=== PATIENT | male | born 1940 | race Caucasian/White ===

== ENCOUNTER 2017-05-30 07:15 | Emergency (ER) | payer BC, MEDICARE, OTHER ==
[~2017-05-30] VITALS: Ht 170.2 cm; Wt 85.0 kg
[~2017-05-30 07:15] MED LIST: ALLO100T PO; AMLO2.5T PO; ASPI81TA82 PO; DOXY100T PO; ENAL20TA81 PO; EZET10 PO; NITR.4 SL; SYNT88TA PO; VENTAER INH
[2017-05-30 07:20] VITALS: BP 140/81; PULSE 95; RESP 16; TEMP 98.5; O2SAT 95
[2017-05-30] MEDS ORDERED: LEVO.1 PO (07:30)
[2017-05-30] MEDS ORDERED: VASO10TA8 PO (07:30)
[2017-05-30] MEDS ORDERED: AMLO2.5T PO (07:30)
[2017-05-30] MEDS ORDERED: ZOCO20TA PO (07:30)
[2017-05-30] MEDS ORDERED: ALLO100T PO (07:30)
--- NOTE | 2017-05-30 07:31 | PD ---
HPI . 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 He is here today stating that he needs to have his work flushed monthly does not have a local physician or clinic who can do this for him. He denies any complaints at all. PFSH Past Medical History Hx Anticoagulant Therapy: Yes (81 MG ASA) Heart Rhythm Problems: No Cancer: No Cardiac Catheterization: Yes (3 stents) Cardiovascular Problems: Yes (STENTS) High Cholesterol: Yes Chemotherapy: Yes (2014) Congestive Heart Failure: No Coronary Artery Disease: Yes Diabetes: No Hepatitis: No Hiatal Hernia: No Hypertension: Yes Respiratory: No Thyroid Disease: No ?: Not Past Surgical History Abdominal Surgery: Yes (appendectomy) Cardiac Surgery: Yes (xcardiac stents) Coronary Artery Bypass Graft: No Coronary Stent: Yes (X2) Endocrine Surgery: Yes (thyroidectomy) Oral Surgery: Yes (tonsillectomy) Other Surgery: Yes Social History Alcohol Use: Yes (1-2 monthly) Tobacco Use: No Substance Use: No Allergies-Medications (Allergen,Severity, Reaction): Coded Allergies: diatrizoate meglumine (Unverified Allergy, Severe, Cardiac Arrest, 05/30/17 ) gadobenic acid (Unverified Allergy, Severe, Cardiac Arrest, 05/30/17) gadodiamide (Unverified Allergy, Severe, Cardiac Arrest, 05/30/17) gadoteridol (Unverified Allergy, Severe, Cardiac Arrest, 05/30/17) iodixanol (Unverified Allergy, Severe, Cardiac Arrest, 05/30/17) iohexol (Unverified Allergy, Severe, Cardiac Arrest, 05/30/17) Reported Meds & Prescriptions Reported Meds & Active Scripts Active Ventolin Hfa (Albuterol Sulfate) 18 Gm Aero 2 Puff INH Q6H PRN Vibramycin 100 mg (Doxycycline Hyclate) 100 Mg Cap 1 Tab PO BID Reported Allopurinol 100 Mg Tab 100 Mg PO DAILY Amlodipine Besylate 2.5 mg (Amlodipine Besylate) 2.5 Mg Tab 1 Tab PO DAILY Nitroglycerin 0.4 Mg Subl 0.4 Mg SL DIRECTED Zetia (Ezetimibe) 10 Mg Tab 10 Mg PO DAILY Synthroid (Levothyroxine Sodium) 88 Mcg Tab 100 Mcg PO DAILY Vasotec (Enalapril Maleate) 20 Mg Tab 10 Mg PO BID Aspir-81 (Aspirin) 81 Mg Tab 81 Mg PO Review of Systems Except as stated in HPI: all other systems reviewed are Neg Physical Exam Narrative GENERAL: Awake and alert and in no acute distress. SKIN: Warm and dry. Report palpable in the right upper chest. Overlying skin is not red or hot nor is there any tenderness. HEAD: Normocephalic/atraumatic. EYES: Pupils are equal. Extraocular movements are intact. NECK: Normal range of motion. RESPIRATORY: Nonlabored respirations. MUSCULOSKELETAL: Atraumatic. NEUROLOGICAL: Nonfocal. PSYCHIATRIC: Appropriate mood and affect. Data Data Last Documented VS Vital Signs Date Time Temp Pulse Resp B/P (MAP) Pulse Ox O2 Delivery O2 Flow Rate FiO2 05/30/17 07:20 98.5 95 16 140/81 (100) 95 Orders Orders Heparin Central Flush (Heparin Central F (05/30/17 09:00) MDM Medical Decision Making Medical Screen Exam Complete: Yes Emergency Medical Condition: Yes Differential Diagnosis Differential diagnosis includes but is not limited to routine port access, nonfunctioning port, infected port access Narrative Course This patient presents requesting routine flushing of his port. It will be flushed with heparin and he will be discharged to home. Diagnosis Primary Impression: Port catheter in place Patient Instructions: General Instructions, Implanted Venous Access Port (DC) Disposition: 01 DISCHARGE HOME Condition: Stable Susanne Zelaya MD May 30, 2017 07:31
== END 2017-05-30 08:04 | disposition home or self-care (01) ==
LOC: PHED 07:15
DX: C95.90 Leukemia, unspecified not having achieved remission (principal)
CPT/HCPCS: 99283; J1642

== ENCOUNTER 2017-07-02 07:16 | Emergency (ER) | payer MEDICARE ==
[~2017-07-02] VITALS: Ht 170.2 cm; Wt 92.2 kg
[~2017-07-02 07:16] MED LIST changes: -ASPI81TA82 PO; -DOXY100T PO; -ENAL20TA81 PO; -EZET10 PO; +LEVO.1 PO; -NITR.4 SL; -SYNT88TA PO; +VASO10TA8 PO; -VENTAER INH; +ZOCO20TA PO
[2017-07-02 07:19] VITALS: BP 131/82; PULSE 96; RESP 16; TEMP 97.4; O2SAT 97
--- NOTE | 2017-07-02 07:31 | PD ---
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 He has had a port for about 4-5 years. He is being treated for CLL. He has no complaints that he wants this addressed at this time. He is here for routine flushing. PFSH Past Medical History Hx Anticoagulant Therapy: Yes Heart Rhythm Problems: No Cancer: No Cardiac Catheterization: Yes (3 stents) Cardiovascular Problems: Yes (STENTS) High Cholesterol: Yes Chemotherapy: Yes (2014) Congestive Heart Failure: No Coronary Artery Disease: Yes Diabetes: No Hepatitis: No Hiatal Hernia: No Heparin Induced Thrombocytopen: No Hypertension: Yes Respiratory: No Thyroid Disease: No Past Surgical History Abdominal Surgery: Yes (appendectomy) Cardiac Surgery: Yes (xcardiac stents) Coronary Artery Bypass Graft: No Coronary Stent: Yes (X2) Endocrine Surgery: Yes (thyroidectomy) Oral Surgery: Yes (tonsillectomy) Other Surgery: Yes Social History Alcohol Use: Yes (1-2 monthly) Tobacco Use: No Substance Use: No Allergies-Medications (Allergen,Severity, Reaction): Coded Allergies: diatrizoate meglumine (Unverified Allergy, Severe, Cardiac Arrest, 07/02/17 ) gadobenic acid (Unverified Allergy, Severe, Cardiac Arrest, 07/02/17) gadodiamide (Unverified Allergy, Severe, Cardiac Arrest, 07/02/17) gadoteridol (Unverified Allergy, Severe, Cardiac Arrest, 07/02/17) iodine (Verified Allergy, Severe, Cardiac Arrest, 07/02/17) iodixanol (Unverified Allergy, Severe, Cardiac Arrest, 07/02/17) iohexol (Unverified Allergy, Severe, Cardiac Arrest, 07/02/17) Reported Meds & Prescriptions Reported Meds & Active Scripts Active Reported Allopurinol 100 Mg Tab 100 Mg PO DAILY Amlodipine (Amlodipine Besylate) 2.5 Mg Tab 2.5 Mg PO DAILY Zocor (Simvastatin) 20 Mg Tab 20 Mg PO DAILY Synthroid (Levothyroxine Sodium) 100 Mcg Tab 100 Mcg PO DAILY Vasotec (Enalapril Maleate) 10 Mg Tab 10 Mg PO DAILY Review of Systems Except as stated in HPI: all other systems reviewed are Neg Physical Exam Narrative GENERAL: Well developed male SKIN: Focused skin assessment warm/dry. HEAD: Atraumatic. Normocephalic. EYES: Pupils equal and round. No scleral icterus. No injection or drainage. ENT: No nasal bleeding or discharge. Mucous membranes pink and moist. NECK: Trachea midline. No JVD. MUSCULOSKELETAL: No obvious deformities. No clubbing. No cyanosis. No edema. NEUROLOGICAL: Awake and alert. No obvious cranial nerve deficits. Motor grossly within normal limits. Normal speech. PSYCHIATRIC: Appropriate mood and affect; insight and judgment normal. Data Data Last Documented VS Vital Signs Date Time Temp Pulse Resp B/P (MAP) Pulse Ox O2 Delivery O2 Flow Rate FiO2 07/02/17 07:19 97.4 96 16 131/82 (98) 97 Orders Orders Heparin Central Flush (Heparin Central F (07/02/17 07:30) [facility] Medical Decision Making Medical Screen Exam Complete: Yes Emergency Medical Condition: Yes Medical Record Reviewed: Yes Differential Diagnosis This gentleman has CLL and has a port. He is on vacation. He has no medical complaints and is just here for routine maintenance of the port. Narrative Course Portable be flushed with 500 units of heparin Diagnosis Primary Impression: Encounter for central line care Disposition: 01 DISCHARGE HOME Condition: Stable Pascual Kim MD Jul 02, 2017 07:31
== END 2017-07-02 08:03 | disposition home or self-care (01) ==
LOC: PHED 07:16
DX: Z45.2 Encounter for adjustment and management of vascular access device (principal); C91.10 Chronic lymphocytic leukemia of B-cell type not having achieved remission; E78.00 Pure hypercholesterolemia, unspecified; I10 Essential (primary) hypertension; I25.10 Atherosclerotic heart disease of native coronary artery without angina pectoris; Z95.5 Presence of coronary angioplasty implant and graft
CPT/HCPCS: 99281; J1642

== ENCOUNTER 2018-01-14 17:39 | Inpatient (IN) ==
[2018-01-14] MEDS ORDERED: Acetaminophen 325 MG Tablet PO ONE (19:08)
--- NOTE | 2018-01-14 19:15 | ED ---
HPI General Chief Complaint: Respiratory Symptoms Stated Complaint: upper respiratory-sent by DR Amador Seen by Provider: 01/14/18 18:43 Source: patient and family Mode of arrival: ambulatory Limitations: no limitations History of Present Illness HPI Narrative: 77-year-old male with a history of leukemia presents to the emergency department for evaluation of upper respiratory type of symptoms that have been persistent for 1 week. Says he has associated shortness of breath and generalized malaise. He said a couple of days ago he had a dry cough but the next day developed clear rhinorrhea and occasional productive cough with clear sputum. Says he has associated shortness of breath, decreased appetite. Says he went to urgent care today for evaluation but they recommended he come to the emergency department for further evaluation. He states that he had a temperature of 100.4 while at urgent care today but not take any medication for this. He says his last dose of [id number] medication was yesterday evening. He says he has chronic abdominal pain and denies new symptoms related to it. He denies chest pain, nausea, vomiting or diarrhea. Dr. Carranza is his oncologist and possible or [place]. Of note, he states that he was on Gleevec approximate 2 weeks ago but started a new shot for his leukemia this past Sunday and to "increase his white blood cells". Complaint: Reports cough and rhinorrhea Onset (ago): day(s) Duration: constant Severity: mild Relieving factors: nothing Exacerbating factors: nothing Description of mucous: Reports clear and watery Able to tolerate fluids by mouth: Yes Related Data Home Medications Medication Instructions Recorded Confirmed allopurinol 100 mg PO DAILY 01/14/18 01/14/18 amlodipine 2.5 mg PO DAILY 01/14/18 01/14/18 enalapril maleate [Vasotec] 10 mg PO BID 01/14/18 01/14/18 levothyroxine [Synthroid] 100 mcg PO DAILY 01/14/18 01/14/18 simvastatin [Zocor] 20 mg PO QPM 01/14/18 01/14/18 Allergies Allergy/AdvReac Type Severity Reaction Status Date / Time diatrizoate meglumine Allergy Severe Cardiac Verified 07/02/17 07:35 Arrest gadobenic acid Allergy Severe Cardiac Verified 07/02/17 07:35 Arrest gadodiamide Allergy Severe Cardiac Verified 07/02/17 07:35 Arrest gadoteridol Allergy Severe Cardiac Verified 07/02/17 07:35 Arrest iodine Allergy Severe Cardiac Verified 07/02/17 07:17 Arrest iodixanol Allergy Severe Cardiac Verified 07/02/17 07:35 Arrest iohexol Allergy Severe Cardiac Verified 07/02/17 07:35 Arrest Review of Systems ROS: all other systems reviewed are negative ON LICENSE OF [facility] Medical History Medical History Hypertension (Acute) Leukemia (Acute) Surgical History Surgical History History of appendectomy (Acute) History of tonsillectomy (Acute) Hx of heart artery stent (Acute) Social History Social History Substance History: No History of Abuse Smoking Status: Former smoker How Often Do You Have a Drink Containing Alcohol: Monthly or less Recent Travel in [facility] within the Last 8 Weeks: No Recent Out of Country Travel within the Last 8 Weeks: No Immunization History Tetanus Immunization: Unsure Exam Narrative Exam Narrative: GENERAL: Well-developed, well-nourished no acute distress SKIN: Focused skin assessment warm/dry. HEAD: Atraumatic. Normocephalic. EYES: Pupils equal and round. No scleral icterus. No injection or drainage. ENT: No nasal bleeding or discharge. Mucous membranes pink and moist. White plaque on tongue NECK: Trachea midline. No JVD. No lymphadenopathy CARDIOVASCULAR: Regular rate and rhythm. No murmur appreciated. RESPIRATORY: No accessory muscle use. Clear to auscultation. Breath sounds equal bilaterally. GASTROINTESTINAL: Abdomen soft, non-tender, nondistended. Hepatic and splenic margins not palpable. MUSCULOSKELETAL: No obvious deformities. No clubbing. No cyanosis. No edema. No tenderness palpation of the calves NEUROLOGICAL: Awake and alert. No obvious cranial nerve deficits. Motor grossly within normal limits. Normal speech. PSYCHIATRIC: Appropriate mood and affect; insight and judgment normal. Course Initial Documented Vital Signs Temperature 98.2 F 01/14/18 17:45 Pulse Rate 102 H 01/14/18 17:45 Respiratory Rate 20 01/14/18 17:45 Blood Pressure 118/67 01/14/18 17:45 Pulse Oximetry 96 01/14/18 17:45 Last Documented Vital Signs Temperature 98.2 F 01/14/18 17:45 Pulse Rate 95 H 01/15/18 00:29 Respiratory Rate 18 01/15/18 00:29 Blood Pressure 139/72 01/15/18 00:29 Pulse Oximetry 94 L 01/15/18 00:29 Medical Decision Making MDM Narrative Medical decision making narrative: 77-year-old male with a history of leukemia presents to the emergency department evaluation of shortness of breath upper respiratory type of symptoms been persistent for 1 week. Family states that patient had a temperature of 100.4 yesterday. Says he went to urgent care and they recommended he come here to the emergency department for evaluation. Vital signs: Blood pressure 118/67, heart rate 102, temperature 98.2, SaO2 96% on room air. Albuterol nebulizers ordered with no improvement in patient's symptoms. Tylenol for subjective fevers. Labs were notable for WBC 2.2, H/H 11.2/33.1, platelets 109, absolute neutrophils 0.1, BUN/Cr 26/1.56, lactic 0.8, UA noncontributory. Chest CT ordered for evaluation as he c/o URI type symptoms but CXR unclear and unconvincing of PNA. CT shows Severe coronary calcifications but no PNA. Ordered VQ scan for further eval of his SOB. After discussion with my attending, based off of H&P, decided to start treatment for neutropenic fever. Initiated Cefepime and Vancomycin. Will await VQ prior to admission to R/O . Medical Screen Exam Complete: Yes Emergency Medical Condition: Yes Differential Diagnosis Differential Diagnosis: Influenza, URI, pneumonia, bronchitis, pneumonitis, bronchospasm Lab Data Result diagrams: 01/14/18 19:43 01/14/18 19:43 Lab Results 01/14/18 01/14/18 01/14/18 Range/Units 19:43 19:43 19:43 WBC 2.2 L (4.0-11.0) th/mm3 RBC 3.60 L (4.50-5.90) mil/mm3 Hgb 11.2 L (13.0-17.0) gm/dL Hct 33.1 L (39.0-51.0) % MCV 91.9 (80.0-100.0) fL MCH 31.0 (27.0-34.0) pg MCHC 33.7 (32.0-36.0) % RDW 15.8 (11.6-17.2) % Plt Count 109 L (150-450) th/mm3 MPV 9.2 (7.0-11.0) fL Prelim Diff (Auto) Manual diff required WBC Differential Manual diff final Seg Neuts % (Manual) 4 L (16-70) % Lymphocytes % (Manual) 85 H (9-44) % Monocytes % (Manual) 10 H (0-8) % Basophils % (Manual) 1 (0-2) % Abs Neuts (Manual) 0.1 L* (1.8-7.7) th/mm3 Differential Comment . Platelet Estimate Low L (Normal) Platelet Morphology Normal (Normal) RBC Morphology Normal (Normal) Sodium 138 (136-145) meq/L Potassium 4.0 (3.5-5.1) meq/L Chloride 102 (98-107) meq/L Carbon Dioxide 27.0 (21.0-32.0) meq/L Anion Gap 9 (5-15) meq/L BUN 26 H (7-18) mg/dL Creatinine 1.56 H (0.60-1.30) mg/dL Estimated GFR 44 L (>89) mL/min Random Glucose 95 (74-106) mg/dL Lactic Acid 0.8 (0.4-2.0) mmol/L Calcium 7.5 L (8.5-10.1) mg/dL Total Bilirubin 0.7 (0.2-1.0) mg/dL AST 13 L (15-37) U/L ALT 13 (12-78) U/L Alkaline Phosphatase 65 (45-117) U/L Total Protein 6.6 (6.4-8.2) g/dL Albumin 3.8 (3.4-5.0) g/dL Urine Color (Yellw/Straw) Urine Clarity (Clear) Urine pH (5.0-8.5) Ur Specific [place] (1.002-1.035) Urine Protein (Neg-Trace) mg/dL Urine Glucose (UA) (Negative) mg/dL Urine Ketones (Negative) mg/dL Urine Occult Blood (Negative) Urine Nitrate (Negative) Urine Bilirubin (Negative) Urine Urobilinogen (Less than 2) mg/dL Ur Leukocyte Esterase (Negative) Urine RBC (0-3) /hpf Urine WBC (0-5) /hpf Ur Squamous Epith Cells (0-5) /hpf Hyaline Casts (0-3) /lpf Urine Mucus (Occasional) /lpf Micro UA Comment Ur Microscopic Review Urine Culture Comments 01/14/18 Range/Units 20:14 WBC (4.0-11.0) th/mm3 RBC (4.50-5.90) mil/mm3 Hgb (13.0-17.0) gm/dL Hct (39.0-51.0) % MCV (80.0-100.0) fL MCH (27.0-34.0) pg MCHC (32.0-36.0) % RDW (11.6-17.2) % Plt Count (150-450) th/mm3 MPV (7.0-11.0) fL Prelim Diff (Auto) WBC Differential Seg Neuts % (Manual) (16-70) % Lymphocytes % (Manual) (9-44) % Monocytes % (Manual) (0-8) % Basophils % (Manual) (0-2) % Abs Neuts (Manual) (1.8-7.7) th/mm3 Differential Comment Platelet Estimate (Normal) Platelet Morphology (Normal) RBC Morphology (Normal) Sodium (136-145) meq/L Potassium (3.5-5.1) meq/L Chloride (98-107) meq/L Carbon Dioxide (21.0-32.0) meq/L Anion Gap (5-15) meq/L BUN (7-18) mg/dL Creatinine (0.60-1.30) mg/dL Estimated GFR (>89) mL/min Random Glucose (74-106) mg/dL Lactic Acid (0.4-2.0) mmol/L Calcium (8.5-10.1) mg/dL Total Bilirubin (0.2-1.0) mg/dL AST (15-37) U/L ALT (12-78) U/L Alkaline Phosphatase (45-117) U/L Total Protein (6.4-8.2) g/dL Albumin (3.4-5.0) g/dL Urine Color [place] (Yellw/Straw) Urine Clarity Cloudy H (Clear) Urine pH 5.0 (5.0-8.5) Ur Specific [place] 1.021 (1.002-1.035) Urine Protein 30 H (Neg-Trace) mg/dL Urine Glucose (UA) Negative (Negative) mg/dL Urine Ketones Trace H (Negative) mg/dL Urine Occult Blood Negative (Negative) Urine Nitrate Negative (Negative) Urine Bilirubin Negative (Negative) Urine Urobilinogen Less than 2 (Less than 2) mg/dL Ur Leukocyte Esterase Negative (Negative) Urine RBC 1 (0-3) /hpf Urine WBC 2 (0-5) /hpf Ur Squamous Epith Cells <1 (0-5) /hpf Hyaline Casts 47 (0-3) /lpf Urine Mucus Moderate H (Occasional) /lpf Micro UA Comment Culture not ind Ur Microscopic Review Not Reportable Urine Culture Comments Culture not ind Imaging Data Radiologist's impression: Chest X-Ray 01/14/18 19:08 CONCLUSION: 1. Minimal patchy airspace disease at the lung bases, presumably atelectasis. Chest CT 01/14/18 21:31 CONCLUSION: 1. No acute findings. Minimal basilar atelectasis. Severe coronary artery calcifications especially LAD. Pulmonary Perfusion Imaging 01/14/18 22:08 CONCLUSION: Normal study, low probability for pulmonary embolus. Perfusion is homogeneous. Discharge Plan Discharge Disposition Patient Disposition: 30 Still Patient Discharge Condition Condition: Stable Discharge Details Diagnosis: Neutropenia with fever, Shortness of breath Physicians Team ED Provider: Jojo Epps ED Midlevel Provider: Malena Crouch Primary Care Provider: UNKNOWN, Rxs /Orders / Referrals /Forms Prescriptions: No Action enalapril maleate [Vasotec] 10 mg Tablet 10 mg PO BID RF: 0 amlodipine 2.5 mg Tablet 2.5 mg PO DAILY RF: 0 allopurinol 100 mg Tablet 100 mg PO DAILY RF: 0 levothyroxine [Synthroid] 100 mcg Tablet 100 mcg PO DAILY RF: 0 simvastatin [Zocor] 20 mg Tablet 20 mg PO QPM RF: 0 Status ED Status: With Doctor
--- NOTE | 2018-01-14 20:00 | XR ---
EXAM DATE: 01/14/2018 7:52 PM EDT AGE/SEX: 77 years / Male INDICATIONS: Shortness of breath. CLINICAL DATA: This is the patient's initial encounter. Patient reports that signs and symptoms have been present for 1 day and indicates a pain score of 0/10. MEDICAL/SURGICAL HISTORY: Hypertension. None. COMPARISON: [facility], CHEST SINGLE AP, 05/12/2015. . FINDINGS: Right IJ [id number] with tip near the cavoatrial junction. Minimal patchy airspace disease at the lung bases. Cardiomegaly mediastinal contours are stable with slight perihilar interstitial opacities exaggerated by low lung volumes.. Bony thorax is intact. CONCLUSION: 1. Minimal patchy airspace disease at the lung bases, presumably atelectasis. Electronically signed by: Delmar Singh MD 01/14/2018 7:58 PM EDT
[2018-01-14 20:15] LABS: Hematocrit 33.1 % (39.0-51.0); Hemoglobin 11.2 gm/dL (13.0-17.0); Mean Corpuscular HGB Conc 33.7 % (32.0-36.0); Mean Corpuscular Volume 91.9 fL (80.0-100.0); Mean Platelet Volume 9.2 fL (7.0-11.0); Platelet Count 109 th/mm3 (150-450); Red Cell Distribution Width 15.8 % (11.6-17.2); White Blood Count 2.2 th/mm3 (4.0-11.0)
[2018-01-14 20:30] LABS: Albumin 3.8 g/dL (3.4-5.0); Anion Gap 9 meq/L (5-15); Aspartate Aminotransferase 13 U/L (15-37); Blood Urea Nitrogen 26 mg/dL (7-18); Calcium 7.5 mg/dL (8.5-10.1); Chloride 102 meq/L (98-107); Glomerular Filtration Rate 44 mL/min (>89); Glucose,Random 95 mg/dL (74-106); Sodium 138 meq/L (136-145)
[2018-01-14 20:31] LABS: Alanine Aminotransferase 13 U/L (12-78)
[2018-01-14 20:33] LABS: Alkaline Phosphatase 65 U/L (45-117); Total Protein 6.6 g/dL (6.4-8.2)
[2018-01-14 20:51] LABS: Lymphocytes 85 % (9-44); Monocytes 10 % (0-8)
[2018-01-14 20:54] LABS: Platelet Morphology Normal (Normal); RBC Morphology Normal (Normal)
[2018-01-14 20:55] LABS: Bilirubin,Urine Negative (Negative); Clarity,Urine Cloudy (Clear); Color,Urine Amber (Yellw/Straw); Glucose,Urine (UA) Negative (Negative); Hyaline Casts,Urine 47 /lpf (0-3); Leukocyte Esterase,Urine Negative (Negative); Mucus,Urine Moderate /lpf (Occasional); Nitrite,Urine Negative (Negative); Specific Gravity,Urine 1.021 (1.002-1.035); Squamous Epithelial Cell,Urine <1 /hpf (0-5)
--- NOTE | 2018-01-14 22:01 | CT ---
EXAM DATE: 01/14/2018 9:54 PM EDT AGE/SEX: 77 years / Male INDICATIONS: Short of breath. CLINICAL DATA: This is the patient's initial encounter. Patient reports that signs and symptoms have been present for 4 - 6 days and indicates a pain score of 0/10. MEDICAL/SURGICAL HISTORY: Cardiovascular disease. Hypertension. Leukemia. Appendectomy. Coronary artery stent. Tonsillectomy. RADIATION DOSE: 14.61 CTDI (mGy) COMPARISON: No prior exams available for comparison. TECHNIQUE: Multiple contiguous axial images were obtained through the chest without contrast. Image s were obtained in suspended respiration using multiple row detector helical technique. Using automa ilene exposure control and adjustment of the mA and/or kV according to patient size, radiation dose was kept as low as reasonably achievable to obtain optimal diagnostic quality images. DICOM format imag e data is available electronically for review and comparison. FINDINGS: There is some dependent atelectasis and scarring at the lung bases. No lung consolidation. There is n o pleural or pericardial effusion. Severe coronary artery calcifications are present especially in th e LAD. No hilar, mediastinal or axillary adenopathy. No acute findings in the upper abdomen. Tiny nonobstructing calculus right kidney. Mild constipation. [id number]-h-[id number] tip in superior vena cava. CONCLUSION: 1. No acute findings. Minimal basilar atelectasis. Severe coronary artery calcifications especially LAD. Electronically signed by: Cristino Crowley MD 01/14/2018 9:59 PM EDT
[2018-01-14] MEDS ORDERED: Vancomycin Inj 1,250 MG in Sodium Chlor 0.9% Inj 250 ML IV.SIG ONE (23:07)
--- NOTE | 2018-01-15 00:23 | NM ---
EXAM DATE: 01/15/2018 12:13 AM EDT AGE/SEX: 78 years / Male INDICATIONS: Short of breath. CLINICAL DATA: This is the patient's initial encounter. Patient reports that signs and symptoms have been present for 1 day and indicates a pain score of 3/10. MEDICAL/SURGICAL HISTORY: Hypertension. Leukemia. Coronary artery stent. COMPARISON: No prior exams available for comparison. DOSE: 1.3 mCi Tc99m DTPA aerosol 8.1 mCi Tc99m MAA IV TECHNIQUE: Following five minutes of tidal breathing of DTPA aerosol, planar images of the lungs wer e performed in eight projections. The patient was then injected with MAA, and eight-view perfusion s can was performed. FINDINGS: There is a homogeneous pattern of aerosol delivery to the periphery of both lungs. No focal ventilat ory defects are seen. The perfusion lung scan demonstrates a homogenous pattern of uptake in both lungs. No segmental or s ubsegmental defects are seen. CONCLUSION: Normal study, low probability for pulmonary embolus. Perfusion is homogeneous. Electronically signed by: Javad Hloloway MD 01/15/2018 12:21 AM EDT
[2018-01-15] MEDS ORDERED: Bisacodyl 10 MG Supp RECTAL PRN (03:38)
[2018-01-15] MEDS: Sod Chloride 0.9% Inj 1,000 ML IV.CONT SCH ×3 (04:15→22:59)
[2018-01-15] MEDS: Levothyroxine 100 MCG Tablet PO SCH (07:18)
[2018-01-15] MEDS: Allopurinol 100 MG Tablet PO SCH (09:14)
[2018-01-15] MEDS ORDERED: Sodium Chloride 0.9% 2 ML Flush PRN IV.FLUSH (11:53)
[2018-01-15] MEDS ORDERED: Vancomycin Consult Pharmacy OTHER PRN (13:03)
--- NOTE | 2018-01-15 13:11 | P.HPIM ---
History of Present Illness Primary Care Physician: UNKNOWN Chief Complaint: Chills History of Present Illness: The patient is a 78-year-old male with past medical history of leukemia who is presenting to the hospital with chills and a cough. The patient says that about 1 week ago he developed chills alternating with episodes of heat and sweating. He says that this would occur on and off. He also had a cough with clear mucus production. He denies any shortness of breath or chest pain, although he does endorse some wheezing. He denies any chest pain upon deep breathing. He has had a decreased appetite over the past week. He denies any nausea, vomiting or diarrhea. He has not had any rashes. He has not checked his temperature at home. He says that his chemotherapy was stopped about a week and a half ago because he had decreased blood cell counts. He says he has been on treatment for leukemia for 5-6 years. 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 He says his oncologist is located in a different state. Inpatient Certification: I certify that the inpatient services were ordered in accordance with Medicare regulations governing the order. This includes certification that hospital inpatient services are reasonable and necessary and in the case of services not specified as inpatient-only under 42 CFR 419.22(n), that they are appropriately provided as inpatient services in accordance to with the 2-midnight benchmark under 43 CFR 412.3(e) Estimated Total Length of Stay (Days): 3 Plans for Post Hospital Care: Not yet determined Review of Systems All other systems reviewed negative except as stated in HPI [facility] - History History Provided By: Patient - Medical History Medical History: Medical History (Last Updated 01/15/18 @ 13:10 by Jose Gaspar DO) CLL (chronic lymphocytic leukemia) Hyperlipidemia Hypertension Leukemia - Surgical History Surgical History: Surgical History (Last Reviewed 01/15/18 @ 13:10 by Jose Gaspar DO) History of appendectomy History of tonsillectomy Hx of heart artery stent - Family History Family History: Family History (Last Updated 01/15/18 @ 13:10 by Jose Gaspar DO) Other No pertinent family history - Social History I have reviewed the patient's Social History: Yes - Tobacco History Second Hand Smoke Exposure: No Tobacco Use In Past 30 Days: No Smoking Status: Former smoker - Alcohol History How Often Do You Have a Drink Containing Alcohol: Monthly or less - Substance Use History Substance History: No History of Abuse - Travel History Recent Travel in the [place] Within the Last 8 Weeks: No Recent Travel Out of the Country Within the Last 8 Weeks: No - Immunization History Tetanus Immunization: Unsure Medications and Allergies Active Medications: Active Medications Al Hydroxide/Mg Hydroxide (Milk Of Magnesia Liq) 30 ml PO Q12H PRN PRN Reason: Mild Constipation Allopurinol (Zyloprim) 100 mg PO DAILY [facility] Last Admin: 01/15/18 09:14 Dose: 100 mg Bisacodyl (Dulcolax Supp) 10 mg RECTAL DAILY PRN PRN Reason: SEVERE CONSITIPATION Cefepime HCl 2,000 mg/ Sodium (Chloride) 100 mls @ 200 mls/hr IV.SIG Q8H [facility] Last Infusion: 01/15/18 13:04 Dose: Infused Sodium Chloride (Ns Inj) 1,000 mls @ 100 mls/hr IV.CONT .Q10H [facility] Last Admin: 01/15/18 04:15 Dose: 100 mls/hr Lactulose (Lactulose Liq) 30 ml PO DAILY PRN PRN Reason: SEVERE CONSITIPATION Levothyroxine Sodium (Synthroid) 100 mcg PO DAILY@0600 [facility] Last Admin: 01/15/18 07:18 Dose: 100 mcg Pharmacy Profile Note (Vancomycin Consult Pharmacy) 1 each OTHER UNSCH PRN PRN Reason: Pharmacy to dose Pravastatin Sodium (Pravachol) 40 mg PO QPM [facility] Sennosides (Senokot) 17.2 mg PO Q12H PRN PRN Reason: Moderate Constipation Sodium Chloride (Ns Flush) 2 ml IV.FLUSH BID [facility] Sodium Chloride (Ns Flush) 2 ml IV.FLUSH PRN PRN PRN Reason: FLUSH AFTER USING IV ACCESS Allergies Allergy/AdvReac Type Severity Reaction Status Date / Time diatrizoate meglumine Allergy Severe Cardiac Verified 07/02/17 07:35 Arrest gadobenic acid Allergy Severe Cardiac Verified 07/02/17 07:35 Arrest gadodiamide Allergy Severe Cardiac Verified 07/02/17 07:35 Arrest gadoteridol Allergy Severe Cardiac Verified 07/02/17 07:35 Arrest iodine Allergy Severe Cardiac Verified 07/02/17 07:17 Arrest iodixanol Allergy Severe Cardiac Verified 07/02/17 07:35 Arrest iohexol Allergy Severe Cardiac Verified 07/02/17 07:35 Arrest Home Medications Medication Instructions Recorded Confirmed Type allopurinol 100 mg PO DAILY 01/14/18 01/14/18 History amlodipine 2.5 mg PO DAILY 01/14/18 01/14/18 History enalapril maleate [Vasotec] 10 mg PO BID 01/14/18 01/14/18 History levothyroxine [Synthroid] 100 mcg PO DAILY 01/14/18 01/14/18 History simvastatin [Zocor] 20 mg PO QPM 01/14/18 01/14/18 History Exam Vital signs: Vital Signs 01/14/18 17:45 01/14/18 18:51 01/14/18 19:08 Temperature 98.2 F Pulse Rate 102 H 102 H Respiratory Rate 20 20 Blood Pressure 118/67 136/78 Pulse Oximetry 96 98 98 01/14/18 19:22 01/14/18 19:32 01/15/18 00:29 Temperature Pulse Rate 91 H 100 H 95 H Respiratory Rate 18 20 18 Blood Pressure 139/72 Pulse Oximetry 94 L 01/15/18 04:00 01/15/18 06:00 01/15/18 08:54 Temperature 98.2 F 98.3 F Pulse Rate 95 H 104 H 95 H Respiratory Rate 16 18 18 Blood Pressure 122/63 118/73 134/66 Pulse Oximetry 94 L 91 L 96 01/15/18 11:18 Temperature 99.6 F Pulse Rate 96 H Respiratory Rate 18 Blood Pressure 135/83 Pulse Oximetry 97 Intake & Output 01/14/18 01/15/18 01/15/18 18:59 06:59 18:59 Intake Total 362.5 / 362.5 100 / 100 Balance 362.5 / 362.5 100 / 100 Weight 79.379 kg 79.379 kg Intake: IV 362.5 / 362.5 100 / 100 Maxipime Inj 2,000 MG In NS Inj 100 / 100 100 / 100 100 ML @ 200 mls/hr IV.SIG Q8H [facility] Rx#:[id number] Vancomycin Inj 1,250 MG In NS 262.5 / 262.5 Inj 250 ML @ 250 mls/hr IV.SIG ONCE ONE Rx#:[id number] Other: Date of Last Bowel Movement 01/14/18 Weight On Admission 79.379 kg Narrative: GENERAL: Well-developed, well-nourished, no acute distress. SKIN: Focused skin assessment warm/dry. HEAD: Atraumatic. Normocephalic. EYES: Pupils equal and round. No scleral icterus. No injection or drainage. ENT: No nasal bleeding or discharge. Mucous membranes pink and moist. White plaque on tongue NECK: Trachea midline. No JVD. No lymphadenopathy CARDIOVASCULAR: Regular rate and rhythm. No murmur appreciated. RESPIRATORY: No accessory muscle use. Mild wheezing noted. GASTROINTESTINAL: Abdomen soft, non-tender, nondistended. Hepatic and splenic margins not palpable. MUSCULOSKELETAL: No obvious deformities. No clubbing. No cyanosis. No edema. NEUROLOGICAL: Awake and alert. No obvious cranial nerve deficits. Motor grossly within normal limits. Normal speech. Results - Labs CBC & Chem 7: 01/14/18 19:43 01/14/18 19:43 Labs: Short CBC 01/14/18 Range/Units 19:43 WBC 2.2 L (4.0-11.0) th/mm3 Hgb 11.2 L (13.0-17.0) gm/dL Hct 33.1 L (39.0-51.0) % Plt Count 109 L (150-450) th/mm3 BMP 01/14/18 19:43 Sodium 138 Potassium 4.0 Chloride 102 Carbon Dioxide 27.0 BUN 26 H Creatinine 1.56 H Calcium 7.5 L Liver Function 01/14/18 Range/Units 19:43 Total Bilirubin 0.7 (0.2-1.0) mg/dL AST 13 L (15-37) U/L ALT 13 (12-78) U/L Alkaline Phosphatase 65 (45-117) U/L Albumin 3.8 (3.4-5.0) g/dL Urine 01/14/18 Range/Units 20:14 Urine Color Clarice (Yellw/Straw) Urine Clarity Cloudy H (Clear) Urine pH 5.0 (5.0-8.5) Ur Specific [place] 1.021 (1.002-1.035) Urine Protein 30 H (Neg-Trace) mg/dL Urine Glucose (UA) Negative (Negative) mg/dL - Imaging Impressions Chest X-Ray 01/14/18 19:08 CONCLUSION: 1. Minimal patchy airspace disease at the lung bases, presumably atelectasis. Chest CT 01/14/18 21:31 CONCLUSION: 1. No acute findings. Minimal basilar atelectasis. Severe coronary artery calcifications especially LAD. Pulmonary Perfusion Imaging 01/14/18 22:08 CONCLUSION: Normal study, low probability for pulmonary embolus. Perfusion is homogeneous. Caprini VTE Risk Assessment Caprini VTE Risk Assessment: Moderate/High Risk (score >= 2) Caprini Risk Assessment Model: Point Value = 1 Point Value = 2 Point Value = 3 Point Value = 5 Age 41-60 Minor surgery BMI > 25 kg/m2 Swollen legs Varicose veins or History of unexplained or recurrent spontaneous Oral contraceptives or hormone replacement Sepsis (< 1 month) Serious lung disease, including pneumonia (< 1 month) Abnormal pulmonary function Acute myocardial infarction Congestive heart failure (< 1 month) History of inflammatory bowel disease Medical patient at bed rest Age 61-74 Arthroscopic surgery Major open surgery (> 45 min) Laparoscopic surgery (> 45 min) Malignancy Confined to bed (> 72 hours) Immobilizing plaster cast Central venous access Age >= 75 History of VTE Family history of VTE Factor V Leiden Prothrombin [id number] Lupus anticoagulant Anticardiolipin antibodies Elevated serum homocysteine Heparin-induced thrombocytopenia Other congenital or acquired thrombophilia Stroke (< 1 month) Elective arthroplasty Hip, pelvis, or leg fracture Acute spinal cord injury (< 1 month) Prophylaxis Regimen: Total Risk Factor Score Risk Level Prophylaxis Regimen 0-1 Low Early ambulation 2 Moderate Order ONE of the following: *Sequential Compression Device (SCD) *Heparin 5000 units SQ BID 3-4 Higher Order ONE of the following medications: *Heparin 5000 units SQ TID *Enoxaparin/Lovenox 40 mg SQ daily (WT < 150 kg, CrCl > 30 mL/min) *Enoxaparin/Lovenox 30 mg SQ daily (WT < 150 kg, CrCl > 10-29 mL/min) *Enoxaparin/Lovenox 30 mg SQ BID (WT < 150 kg, CrCl > 30 mL/min) AND/OR *Sequential Compression Device (SCD) 5 or more Highest Order ONE of the following medications: *Heparin 5000 units SQ TID (Preferred with Epidurals) *Enoxaparin/Lovenox 40 mg SQ daily (WT < 150 kg, CrCl > 30 mL/min) *Enoxaparin/Lovenox 30 mg SQ daily (WT < 150 kg, CrCl > 10-29 mL/min) *Enoxaparin/Lovenox 30 mg SQ BID (WT < 150 kg, CrCl > 30 mL/min) AND *Sequential Compression Device (SCD) Assessment and Plan - Plan SIRS Pt with leukopenia and tachycardia. Source unclear at this time. UA, CXR and CT chest negative for infection. -continue IV vancomycin and cefepime. -IVFs. -follow blood and sputum cultures. Leukemia/ Pancytopenia The pt says he has had CLL which has changed to ALL. Last had chemo 1.5 weeks prior to admission. He said it was stopped s/t low blood cell counts. -neutropenic precautions. -follow CBC. -oncology consult requested. Renal insufficiency Unsure of baseline. -IVFs. -avoid nephrotoxins. -follow BMP. HTN Blood pressure well controlled at this time. -home regimen on hold. Resume if blood pressure becomes elevated. -clonidine as needed. PPx: Heparin H&P: Quality - VTE Deep Vein Thrombosis/Pulmonary Embolism Present on Admission: No
[2018-01-15] MEDS ORDERED: Acetaminophen 325 MG Tablet PO PRN (14:26)
[2018-01-15] MEDS: Heparin - SQ 10,000 UNITS/ML Vial SQ SCH ×2 (14:53→22:03)
[2018-01-15] MEDS: Nystatin/Diphenhydramine/Lidocaine Mouthwash (Adult) 120 ML Botttle SWISH-SWAL SCH ×2 (18:23→22:44)
[2018-01-15] MEDS: Sodium Chloride 0.9% 2 ML Flush BID IV.FLUSH SCH (22:03)
--- NOTE | 2018-01-16 00:10 | MB ---
cc: Alyssa Rosas MD DATE: 01/15/2018 REASON FOR CONSULTATION: Consult requested by hospitalist for evaluation of neutropenia in a patient who has chronic myeloid leukemia. HISTORY OF PRESENT ILLNESS: Reagan is a 78-year-old male. He is from [place], [place]. He spent winter in [place] and summer in [place]. He is under the care of oncologist, Dr. Carranza in [place], [place]. The patient states that he was diagnosed with chronic lymphocytic leukemia about 10 years ago. He was treated with unknown chemotherapy that he does not recall at this time. About 2 months ago, he had a bone marrow biopsy, which showed that he has chronic myeloid leukemia and he was started on Gleevec. The patient's blood count dropped significantly and the Gleevec was held 2 weeks ago. He was given Neupogen before traveling to [place] for the winter. The patient did not bring any records with him. The patient had developed fever with chills and cough. He came into the emergency room for further evaluation. Admission CBC showed a white count of 2.2, hemoglobin 11.2, platelet count of 109 and absolute neutrophil count of only 100. The patient is admitted to the hospital for neutropenic fever. I have been asked to see the patient for further evaluation. The patient is a very poor historian. He does not remember much of the details of his disease process. He had a CAT scan of the chest for the cough. This does not show any acute findings. He has severe coronary artery calcification, especially in the LAD. He had a V/Q scan, which came back normal with low probability for pulmonary embolism. The rest of the review of systems is negative. PAST MEDICAL HISTORY: Chronic lymphocytic leukemia and chronic myeloid leukemia, hypercholesterolemia, hypertension, coronary artery disease, hypothyroidism. PAST SURGICAL HISTORY: Appendectomy, tonsillectomy, coronary artery stent placement. ALLERGIES: , GADOBENIC ACID, GADODIAMIDE, GADOTERIDOL, IODINE, IODIXANOL, IOHEXOL. MEDICATIONS: Prior to coming to hospital: 1. Allopurinol. 2. Amlodipine. 3. Enalapril. 4. Levothyroxine. 5. Simvastatin. 6. Gleevec is on hold. FAMILY HISTORY: None for malignancy. SOCIAL HISTORY: The patient is . Does not smoke cigarettes, does not drink alcohol. PHYSICAL EXAMINATION: GENERAL: Reveals a well-developed elderly white male in no apparent distress. VITAL SIGNS: Temperature 98.3, heart rate is 95, blood pressure 134/66, O2 saturation 96%. HEENT: PERRLA. EOMI. Anicteric. No oral lesions noted. NECK: No lymphadenopathy noted. LUNGS: Clear. No wheezing, rhonchi or rales. CARDIOVASCULAR: Regular rate and rhythm. ABDOMEN: Soft, nontender. EXTREMITIES: No pedal edema. NEUROLOGIC: Awake, alert, oriented x 3. SKIN: No significant lesions noted. ASSESSMENT: 1. Neutropenic fever, currently on the antibiotics. 2. Chronic myeloid leukemia, recently diagnosed, was treated with Gleevec, which was stopped 2 weeks ago due to the significant pancytopenia. 3. Chronic lymphocytic leukemia, status post chemotherapy. The details of those are not available. PLAN: I have reviewed his available records. Unfortunately, we do not have any records from his oncologist in [place]. I have asked ER national secretary to get records from Dr. Carranza, his oncologist in [place], [place]. The patient does not remember the telephone number. The ER national secretary will call his and get the telephone number and will obtain the records. At this time, because of the neutropenic fever, I will start him on Neupogen 480 mcg daily. We will monitor the CBC daily. Further recommendations based on hospital stay. Thank you for asking my opinion. Cornelia Rosas MD AJLanodn/sv/ , 10:32 PM , 10:44 PM MTDD
[2018-01-16] MEDS: Vancomycin Inj 1,250 MG in Sodium Chlor 0.9% Inj 250 ML IV.SIG SCH (00:48)
[2018-01-16] MEDS: Levothyroxine 100 MCG Tablet PO SCH (05:25)
[2018-01-16] MEDS: Heparin - SQ 10,000 UNITS/ML Vial SQ SCH ×3 (05:26→21:07)
[2018-01-16 06:23] LABS: Baso % (Auto) 1.5 % (0.0-2.0); Eos % (Auto) 0.9 % (0.0-4.0); Hematocrit 30.6 % (39.0-51.0); Hemoglobin 10.4 gm/dL (13.0-17.0); Lymph # (Auto) 0.8 th/mm3 (1.0-4.8); Lymph % (Auto) 42.6 % (9.0-44.0); Mean Corpuscular HGB Conc 34.1 % (32.0-36.0); Mean Corpuscular Hemoglobin 31.2 pg (27.0-34.0); Mean Corpuscular Volume 91.5 fL (80.0-100.0); Mean Platelet Volume 9.8 fL (7.0-11.0); Mono # (Auto) 0.3 th/mm3 (0.0-0.9); Mono % (Auto) 18.5 % (0.0-8.0); Neut # (Auto) 0.7 th/mm3 (1.8-7.7); Neut % (Auto) 36.5 % (16.0-70.0); Platelet Count 105 th/mm3 (150-450); Red Blood Count 3.35 mil/mm3 (4.50-5.90); Red Cell Distribution Width 15.9 % (11.6-17.2); White Blood Count 1.8 th/mm3 (4.0-11.0)
[2018-01-16 06:56] LABS: Calcium 6.9 mg/dL (8.5-10.1); Carbon Dioxide 27.2 meq/L (21.0-32.0); Total Protein 5.6 g/dL (6.4-8.2)
[2018-01-16 07:58] LABS: Eosinophils 2 % (0-4); Lymphocytes 40 % (9-44); Monocytes 15 % (0-8)
[2018-01-16] MEDS: Nystatin/Diphenhydramine/Lidocaine Mouthwash (Adult) 120 ML Botttle SWISH-SWAL SCH ×4 (10:31→20:56)
[2018-01-16] MEDS: Allopurinol 100 MG Tablet PO SCH (10:32)
[2018-01-16] MEDS: Sodium Chloride 0.9% 2 ML Flush BID IV.FLUSH SCH ×2 (10:32→21:08)
[2018-01-16] MEDS: Sod Chloride 0.9% Inj 1,000 ML IV.CONT SCH ×2 (10:40→21:08)
--- NOTE | 2018-01-16 16:09 | P.PNONC ---
Subjective Interval history: Afebrile times 24 hours. Patient's last temperature was 101.3 F on 01/15/2018 at 1354. He denies any pain. Denies shortness of breath. Denies bleeding. Remains with mouth ulcer. Objective Vital Signs/Intake & Output: Vital Signs 01/15/18 20:00 01/16/18 00:00 01/16/18 04:00 Temperature 97.6 F 98.2 F 98.2 F Pulse Rate 87 91 H 97 H Respiratory Rate 18 18 18 Blood Pressure 114/78 113/71 143/85 H Pulse Oximetry 96 94 L 94 L 01/16/18 09:55 01/16/18 12:00 Temperature 99.3 F 99.7 F H Pulse Rate 96 H 93 H Respiratory Rate 18 16 Blood Pressure 121/85 139/82 Pulse Oximetry 94 L 95 Intake & Output 01/15/18 01/16/18 01/16/18 18:59 06:59 18:59 Intake Total 200 / 200 1414.1 / 1414.1 1100 / 1100 Output Total 1400 / 1400 Balance 200 / 200 14.1 / 14.1 1100 / 1100 Weight 79.5 kg Intake: IV 200 / 200 1414.1 / 1414.1 1100 / 1100 NS Inj 1,000 ML @ 100 mls/hr IV 0 / 0 1000 / 1000 1000 / 1000 .CONT .Q10H [facility] Rx#:[id number] Maxipime Inj 2,000 MG In NS Inj 200 / 200 100 / 100 100 / 100 100 ML @ 200 mls/hr IV.SIG Q8H [facility] Rx#:[id number] Neupogen Inj 480 MCG In D5W Inj 51.6 / 51.6 50 ML @ 100 mls/hr IV.SIG ONCE ONE Rx#:[id number] Vancomycin Inj 1,250 MG In NS 262.5 / 262.5 Inj 250 ML @ 250 mls/hr IV.SIG Q24H [facility] Rx#:[id number] Output: Urine 1400 / 1400 Other: Date of Last Bowel Movement 01/15/18 01/15/18 Result Diagrams: 01/16/18 05:30 01/16/18 05:30 Laboratory Results: Laboratory Results - last 24 hr 01/16/18 01/16/18 05:30 05:30 WBC 1.8 L RBC 3.35 L Hgb 10.4 L Hct 30.6 L MCV 91.5 MCH 31.2 MCHC 34.1 RDW 15.9 Plt Count 105 L MPV 9.8 Prelim Diff (Auto) Slide review pending Neut % (Auto) 36.5 Lymph % (Auto) 42.6 [place] % (Auto) 18.5 H Eos % (Auto) 0.9 Baso % (Auto) 1.5 Neut # (Auto) 0.7 L Lymph # (Auto) 0.8 L [place] # (Auto) 0.3 Eos # (Auto) 0.0 Baso # (Auto) 0.0 WBC Differential Manual diff final Seg Neuts % (Manual) 20 Band Neuts % (Manual) 23 H Lymphocytes % (Manual) 40 Monocytes % (Manual) 15 H Eosinophils % (Manual) 2 Abs Neuts (Manual) 0.8 L Differential Comment . Platelet Estimate Low L Platelet Morphology Enlarged H Sodium 142 Potassium 4.0 Chloride 109 H Carbon Dioxide 27.2 Anion Gap 6 BUN 20 H Creatinine 1.00 Estimated GFR 73 L Random Glucose 80 Calcium 6.9 L* Prot Corrected Calcium 7.7 L Total Bilirubin 0.4 AST 11 L ALT 14 Alkaline Phosphatase 51 Total Protein 5.6 L D Albumin 3.0 L D Culture Results: Microbiology 01/14/18 19:38 Aerobic Blood Culture - Preliminary Blood - Peripheral No growth in 2 days Anaerobic Blood Culture - Preliminary No growth in 2 days 01/14/18 19:43 Aerobic Blood Culture - Preliminary Blood - Peripheral No growth in 2 days Anaerobic Blood Culture - Preliminary No growth in 2 days 01/14/18 20:14 Influenza Types A,B Antigen - Final Nasal Wash Negative for FLU A and B antigen Infection due to influenza A or B cannot be ruled out since the antigen present in the sample may be below the detection limit of the test. Medications: Active Medications Generic Name Dose Route Start Last Admin Trade Name Freq PRN Reason Stop Dose Admin Acetaminophen 650 mg 01/15/18 14:26 01/15/18 14:53 Tylenol PO 650 mg Q4H PRN Administration fever >100.4 Allopurinol 100 mg 01/15/18 09:00 01/16/18 10:32 Zyloprim PO 100 mg DAILY [facility] Administration Heparin Sodium (Porcine) 5,000 units 01/15/18 14:00 01/16/18 14:53 Heparin Inj SQ 5,000 units Q8HR [facility] Administration Cefepime HCl 2,000 mg/ Sodium 100 mls @ 200 mls/hr 01/15/18 08:00 01/16/18 09 :30 Chloride IV.SIG Infused Q8H [facility] Infusion Sodium Chloride 1,000 mls @ 100 mls/hr 01/15/18 03:45 01/16/18 10:40 Ns Inj IV.CONT 100 mls/hr .Q10H [facility] Administration Vancomycin HCl 1,250 mg/ 262.5 mls @ 250 mls/hr 01/16/18 01:00 01/16/18 01:50 Sodium Chloride IV.SIG Infused Q24H [facility] Infusion Levothyroxine Sodium 100 mcg 01/15/18 06:00 01/16/18 05:25 Synthroid PO 100 mcg DAILY@0600 [facility] Administration Multi-Ingredient Mouthwash/Gargle 10 ml 01/15/18 18:00 01/16/18 13:55 Magic Mouthwash Adult Liq SWISH-SWAL 10 ml QID [facility] Administration Pravastatin Sodium 40 mg 01/15/18 18:00 01/15/18 18:21 Pravachol PO 40 mg QPM [facility] Administration Sodium Chloride 2 ml 01/15/18 21:00 01/16/18 10:32 Ns Flush IV.FLUSH 2 ml BID [facility] Administration Objective Remarks: GENERAL: Well-nourished, well-developed patient. SKIN: Warm and dry. HEAD: Normocephalic. EYES: No scleral icterus. No injection or drainage. MOUTH: ulcer with white mucosal bed left lip line. NECK: Supple, trachea midline. No JVD or lymphadenopathy. LYMPHATIC: No adenopathy. CARDIOVASCULAR: Regular rate and rhythm without murmurs. RESPIRATORY: Breath sounds equal bilaterally. No accessory muscle use. GASTROINTESTINAL: Abdomen soft, non-tender, nondistended. EXTREMITIES: No cyanosis, or edema. MUSCULOSKELETAL: Adequate muscle tone. NEUROLOGICAL: No obvious focal deficit. Awake, alert, and oriented x3. PSYCHIATRIC: Appropriate mood and affect; insight and judgment normal. Assessment/Plan - Plan Mr. Zhao is a pleasant 78-year-old gentleman who is from [place]. He is under the care of an oncologist in [place] for chronic myeloid leukemia. He is currently hospitalized for neutropenic fevers. Recommendations: 1. Chronic myeloid leukemia, Gleevec held 2 weeks ago for neutropenia. 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 His information has been sent to new patient referrals and he will be given follow-up contact information. 2. Neutropenic fever, last fever was 01/15 at 1354, 101.3 F. The patient has been afebrile today. Blood cultures negative times 2 days. Continue Neupogen. 3. Repeat CBC in the a.m. 4. Continue neutropenic precautions. - Attending Statement The exam, history, and the medical decision-making described in the above note were completed with the assistance of the mid-level provider. I reviewed and agree with the findings presented. I attest that I had a [id number] encounter with the patient on the same day, and personally performed and documented my assessment and findings in the medical record. Patient denies any fever The symptoms of upper respiratory infection have improved He is feeling somewhat better ANC has improved with Neupogen Records received from [place] and I have reviewed them Patient stated that he will go back to [place] for and holidays. He will come back to [place] in March and will stay here until June or July Patient should be followed up by a local oncologist if he is going to stay in this area. He will discuss with his primary oncologist in [place] and follow his recommendations Continue Neupogen Monitor CBC
--- NOTE | 2018-01-16 17:09 | P.PNIM ---
Subjective Interval history: Patient does not have any complaints today. He says he feels better, no fevers no chills. Physical Exam Vital signs: Vital Signs 01/15/18 20:00 01/16/18 00:00 01/16/18 04:00 Temperature 97.6 F 98.2 F 98.2 F Pulse Rate 87 91 H 97 H Respiratory Rate 18 18 18 Blood Pressure 114/78 113/71 143/85 H Pulse Oximetry 96 94 L 94 L 01/16/18 09:55 01/16/18 12:00 Temperature 99.3 F 99.7 F H Pulse Rate 96 H 93 H Respiratory Rate 18 16 Blood Pressure 121/85 139/82 Pulse Oximetry 94 L 95 Intake & Output 01/15/18 01/16/18 01/16/18 18:59 06:59 18:59 Intake Total 200 / 200 1414.1 / 1414.1 1100 / 1100 Output Total 1400 / 1400 Balance 200 / 200 14.1 / 14.1 1100 / 1100 Weight 79.5 kg Intake: IV 200 / 200 1414.1 / 1414.1 1100 / 1100 NS Inj 1,000 ML @ 100 mls/hr IV 0 / 0 1000 / 1000 1000 / 1000 .CONT .Q10H [facility] Rx#:[id number] Maxipime Inj 2,000 MG In NS Inj 200 / 200 100 / 100 100 / 100 100 ML @ 200 mls/hr IV.SIG Q8H [facility] Rx#:[id number] Neupogen Inj 480 MCG In D5W Inj 51.6 / 51.6 50 ML @ 100 mls/hr IV.SIG ONCE ONE Rx#:[id number] Vancomycin Inj 1,250 MG In NS 262.5 / 262.5 Inj 250 ML @ 250 mls/hr IV.SIG Q24H [facility] Rx#:[id number] Output: Urine 1400 / 1400 Other: Date of Last Bowel Movement 01/15/18 01/15/18 Narrative: General patient in no acute distress, no cough HEENT extraocular movements are intact, clear oropharyngeal mucosa, no JVD Cardiovascular S1-S2 audible, RRR, no murmurs rubs or gallops Respiratory clear to auscultation bilaterally Abdomen soft, nontender, nondistended, normal bowel sounds Extremities no edema 2+ distal pulses in bilateral upper and lower extremities Neuro no obvious neurological deficits. Results - Labs CBC & Chem 7: 01/16/18 05:30 01/16/18 05:30 Laboratory Results - last 24 hr 01/16/18 01/16/18 05:30 05:30 WBC 1.8 L RBC 3.35 L Hgb 10.4 L Hct 30.6 L MCV 91.5 MCH 31.2 MCHC 34.1 RDW 15.9 Plt Count 105 L MPV 9.8 Prelim Diff (Auto) Slide review pending Neut % (Auto) 36.5 Lymph % (Auto) 42.6 [place] % (Auto) 18.5 H Eos % (Auto) 0.9 Baso % (Auto) 1.5 Neut # (Auto) 0.7 L Lymph # (Auto) 0.8 L [place] # (Auto) 0.3 Eos # (Auto) 0.0 Baso # (Auto) 0.0 WBC Differential Manual diff final Seg Neuts % (Manual) 20 Band Neuts % (Manual) 23 H Lymphocytes % (Manual) 40 Monocytes % (Manual) 15 H Eosinophils % (Manual) 2 Abs Neuts (Manual) 0.8 L Differential Comment . Platelet Estimate Low L Platelet Morphology Enlarged H Sodium 142 Potassium 4.0 Chloride 109 H Carbon Dioxide 27.2 Anion Gap 6 BUN 20 H Creatinine 1.00 Estimated GFR 73 L Random Glucose 80 Calcium 6.9 L* Prot Corrected Calcium 7.7 L Total Bilirubin 0.4 AST 11 L ALT 14 Alkaline Phosphatase 51 Total Protein 5.6 L D Albumin 3.0 L D Microbiology 01/14/18 19:38 Blood - Peripheral Aerobic Blood Culture - Preliminary No growth in 2 days 01/14/18 19:38 Blood - Peripheral Anaerobic Blood Culture - Preliminary No growth in 2 days 01/14/18 19:43 Blood - Peripheral Aerobic Blood Culture - Preliminary No growth in 2 days 01/14/18 19:43 Blood - Peripheral Anaerobic Blood Culture - Preliminary No growth in 2 days Assessment and Plan - Plan This patient is a 78-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 He says his symptoms started approximately a week ago and were on and off. He says that his chemotherapy was stopped about a week and a half ago because he had decreased blood cell counts. He has been on treatment for leukemia for approximately 5 years. 1. Neutropenic fever 2. CML/pancytopenia Patient has not been afebrile for 24 hours Patient initially was tachycardic, with a absolute neutrophil count today of 688. Chest x-ray, CT scan of the chest, urinalysis is negative for infection. Blood cultures are currently negative. We will continue the patient on IV antibiotics. All cultures will be follow-up including blood cultures and sputum culture. Heme oncology is following the patient. I will follow-up with the recommendations. Patient's hem oncologist was out of state in [place] and he is requesting follow-up here in [place]. Continue Neupogen as per heme oncology recommendations. Neutropenic precautions. 2. Acute kidney injury likely prerenal Serum creatinine has now normalized and is currently 1.0 from 1.52 days ago. Avoid nephrotoxic agents. 3. Hypertension The patient's blood pressure is currently under control. Currently he is not on his home medications for hypertension. We will continue to monitor his blood pressure and if needed his blood pressure medications will be started. Heparin for DVT prophylaxis.
[2018-01-17] MEDS: Vancomycin Inj 1,250 MG in Sodium Chlor 0.9% Inj 250 ML IV.SIG SCH (01:21)
[2018-01-17] MEDS: Heparin - SQ 10,000 UNITS/ML Vial SQ SCH ×3 (05:32→21:41)
[2018-01-17] MEDS: Levothyroxine 100 MCG Tablet PO SCH (05:33)
[2018-01-17 06:46] LABS: Baso % (Auto) 1.1 % (0.0-2.0); Eos % (Auto) 1.2 % (0.0-4.0); Hematocrit 30.9 % (39.0-51.0); Hemoglobin 10.2 gm/dL (13.0-17.0); Lymph # (Auto) 0.8 th/mm3 (1.0-4.8); Lymph % (Auto) 36.3 % (9.0-44.0); Mean Corpuscular HGB Conc 32.9 % (32.0-36.0); Mean Corpuscular Hemoglobin 30.6 pg (27.0-34.0); Mean Platelet Volume 10.2 fL (7.0-11.0); Mono # (Auto) 0.3 th/mm3 (0.0-0.9); Mono % (Auto) 14.4 % (0.0-8.0); Neut # (Auto) 1.1 th/mm3 (1.8-7.7); Platelet Count 120 th/mm3 (150-450); Red Blood Count 3.32 mil/mm3 (4.50-5.90); Red Cell Distribution Width 15.9 % (11.6-17.2); White Blood Count 2.3 th/mm3 (4.0-11.0)
[2018-01-17] MEDS: Nystatin/Diphenhydramine/Lidocaine Mouthwash (Adult) 120 ML Botttle SWISH-SWAL SCH ×4 (09:24→23:20)
[2018-01-17] MEDS: Allopurinol 100 MG Tablet PO SCH (09:24)
[2018-01-17] MEDS: Sod Chloride 0.9% Inj 1,000 ML IV.CONT SCH ×2 (09:24→21:39)
[2018-01-17] MEDS: Sodium Chloride 0.9% 2 ML Flush BID IV.FLUSH SCH ×2 (09:34→21:41)
--- NOTE | 2018-01-17 11:01 | P.PNONC ---
Subjective Interval history: Afebrile times 2 days. Blood cultures negative times 2 days. Patient has no complaints at this time. Denies cough, shortness of breath, pain. He is inquiring about when he may be discharged home. Objective Vital Signs/Intake & Output: Vital Signs 01/16/18 12:00 01/16/18 16:00 01/16/18 20:05 Temperature 99.7 F H 97.6 F Pulse Rate 93 H 93 H 86 Respiratory Rate 16 16 Blood Pressure 139/82 160/66 H Pulse Oximetry 95 100 01/16/18 20:53 01/17/18 00:00 01/17/18 04:00 Temperature 98.7 F 97.6 F 98.5 F Pulse Rate 88 89 89 Respiratory Rate 18 17 20 Blood Pressure 128/70 114/75 121/74 Pulse Oximetry 98 96 99 01/17/18 07:00 01/17/18 09:12 Temperature 98.6 F Pulse Rate 85 89 Respiratory Rate 18 Blood Pressure 129/83 Pulse Oximetry 94 L Intake & Output 01/16/18 01/17/18 01/17/18 18:59 06:59 18:59 Intake Total 1251.6 / 1251.6 2212.5 / 2212.5 1100 / 1100 Output Total 1999 Balance 1251.6 / 1251.6 212.5 / 212.5 1100 / 1100 Weight 79.4 kg Intake: IV 1251.6 / 1251.6 1362.5 / 1362.5 1100 / 1100 NS Inj 1,000 ML @ 100 mls/hr IV 1000 / 1000 1000 / 1000 1000 / 1000 .CONT .Q10H [facility] Rx#:[id number] Maxipime Inj 2,000 MG In NS Inj 200 / 200 100 / 100 100 / 100 100 ML @ 200 mls/hr IV.SIG Q8H [facility] Rx#:[id number] Neupogen Inj 480 MCG In D5W Inj 51.6 / 51.6 50 ML @ 100 mls/hr IV.SIG DAILY@1400 [facility] Rx#:[id number] Vancomycin Inj 1,250 MG In NS 262.5 / 262.5 Inj 250 ML @ 250 mls/hr IV.SIG Q24H [facility] Rx#:[id number] Oral 850 / 850 Output: Urine 1999 Other: Date of Last Bowel Movement 01/17/18 01/17/18 # Bowel Movements 1 Result Diagrams: 01/17/18 05:17 01/16/18 05:30 Laboratory Results: Laboratory Results - last 24 hr 01/17/18 05:17 WBC 2.3 L RBC 3.32 L Hgb 10.2 L Hct 30.9 L MCV 93.0 MCH 30.6 MCHC 32.9 RDW 15.9 Plt Count 120 L MPV 10.2 Prelim Diff (Auto) Slide review pending Neut % (Auto) 47.0 Lymph % (Auto) 36.3 [place] % (Auto) 14.4 H Eos % (Auto) 1.2 Baso % (Auto) 1.1 Neut # (Auto) 1.1 L Lymph # (Auto) 0.8 L [place] # (Auto) 0.3 Eos # (Auto) 0.0 Baso # (Auto) 0.0 WBC Differential . Diff Scan Auto diff confirmed Differential Comment . Culture Results: Microbiology 01/14/18 19:38 Aerobic Blood Culture - Preliminary Blood - Peripheral No growth in 2 days Anaerobic Blood Culture - Preliminary No growth in 2 days 01/14/18 19:43 Aerobic Blood Culture - Preliminary Blood - Peripheral No growth in 2 days Anaerobic Blood Culture - Preliminary No growth in 2 days 01/14/18 20:14 Influenza Types A,B Antigen - Final Nasal Wash Negative for FLU A and B antigen Infection due to influenza A or B cannot be ruled out since the antigen present in the sample may be below the detection limit of the test. Medications: Active Medications Generic Name Dose Route Start Last Admin Trade Name Freq PRN Reason Stop Dose Admin Acetaminophen 650 mg 01/15/18 14:26 01/15/18 14:53 Tylenol PO 650 mg Q4H PRN Administration fever >100.4 Allopurinol 100 mg 01/15/18 09:00 01/17/18 09:24 Zyloprim PO 100 mg DAILY [facility] Administration Heparin Sodium (Porcine) 5,000 units 01/15/18 14:00 01/17/18 05:32 Heparin Inj SQ 5,000 units Q8HR [facility] Administration Cefepime HCl 2,000 mg/ Sodium 100 mls @ 200 mls/hr 01/15/18 08:00 01/17/18 10 :14 Chloride IV.SIG Infused Q8H [facility] Infusion Sodium Chloride 1,000 mls @ 100 mls/hr 01/15/18 03:45 01/17/18 09:24 Ns Inj IV.CONT 100 mls/hr .Q10H [facility] Administration Vancomycin HCl 1,250 mg/ 262.5 mls @ 250 mls/hr 01/16/18 01:00 01/17/18 02:33 Sodium Chloride IV.SIG Infused Q24H [facility] Infusion Filgrastim 480 mcg/ Dextrose 51.6 mls @ 100 mls/hr 01/16/18 14:00 01/16/18 18 :38 IV.SIG Infused DAILY@1400 [facility] Infusion Levothyroxine Sodium 100 mcg 01/15/18 06:00 01/17/18 05:33 Synthroid PO 100 mcg DAILY@0600 [facility] Administration Multi-Ingredient Mouthwash/Gargle 10 ml 01/15/18 18:00 01/17/18 09:24 Magic Mouthwash Adult Liq SWISH-SWAL 10 ml QID [facility] Administration Pravastatin Sodium 40 mg 01/15/18 18:00 01/16/18 18:38 Pravachol PO 40 mg QPM [facility] Administration Sodium Chloride 2 ml 01/15/18 21:00 01/17/18 09:34 Ns Flush IV.FLUSH Not Given BID [facility] Objective Remarks: GENERAL: Well-nourished, well-developed patient. SKIN: Warm and dry. HEAD: Normocephalic. EYES: No scleral icterus. No injection or drainage. MOUTH: ulcer with white mucosal bed left lip line. NECK: Supple, trachea midline. No JVD or lymphadenopathy. LYMPHATIC: No adenopathy. CARDIOVASCULAR: +s1/s2 without murmurs. RESPIRATORY: Breath sounds equal bilaterally. Nonlabored at rest. GASTROINTESTINAL: Abdomen soft, non-tender, nondistended. EXTREMITIES: No cyanosis, or edema. MUSCULOSKELETAL: Adequate muscle tone. NEUROLOGICAL: No obvious focal deficit. Awake, alert, and oriented x3. PSYCHIATRIC: Appropriate mood and affect; insight and judgment normal. Assessment/Plan - Plan Mr. Zhao is a pleasant 78-year-old gentleman who is from [place]. He is under the care of an oncologist in [place] for chronic myeloid leukemia. He is currently hospitalized for neutropenic fevers. Recommendations: 1. Chronic myeloid leukemia, Gleevec held 2 weeks ago for neutropenia. 2. Neutropenic fever, last fever was 01/15 at 1354, 101.3 F, afebrile times 2 days. Blood cultures negative times 2 days. ANC 1100. 3. Monitor for fever, will await third day of negative blood cultures and being afebrile and the patient will likely be discharged home. 4. He will follow-up locally while in [place], and he will follow-up with his oncologist in [place]. - Attending Statement The exam, history, and the medical decision-making described in the above note were completed with the assistance of the mid-level provider. I reviewed and agree with the findings presented. I attest that I had a [id number] encounter with the patient on the same day, and personally performed and documented my assessment and findings in the medical record. Patient is feeling better Anxious to go home No more fever Upper respiratory infection has resolved Neutrophils are coming up Continue Neupogen If blood cultures remain negative tomorrow then okay to discharge from my standpoint He needs to see me in the office in 1-2 weeks for follow-up of chronic myeloid leukemia
--- NOTE | 2018-01-17 18:13 | P.PNIM ---
Subjective Interval history: Patient says he feels good today. No fevers overnight. Patient does not have any other complaints. Physical Exam Vital signs: Vital Signs 01/16/18 20:05 01/16/18 20:53 01/17/18 00:00 Temperature 98.7 F 97.6 F Pulse Rate 86 88 89 Respiratory Rate 18 17 Blood Pressure 128/70 114/75 Pulse Oximetry 98 96 01/17/18 04:00 01/17/18 07:00 01/17/18 09:12 Temperature 98.5 F 98.6 F Pulse Rate 89 85 89 Respiratory Rate 20 18 Blood Pressure 121/74 129/83 Pulse Oximetry 99 94 L 01/17/18 11:00 01/17/18 11:23 01/17/18 15:00 Temperature 97.8 F Pulse Rate 94 H 86 91 H Respiratory Rate 18 Blood Pressure 137/80 Pulse Oximetry 95 01/17/18 15:26 Temperature 98.7 F Pulse Rate 90 Respiratory Rate 18 Blood Pressure 118/76 Pulse Oximetry 92 L Intake & Output 01/16/18 01/17/18 01/17/18 18:59 06:59 18:59 Intake Total 1251.6 / 1251.6 2212.5 / 2212.5 1851.6 / 1851.6 Output Total 1999 / 1999 600 / 600 Balance 1251.6 / 1251.6 212.5 / 212.5 1251.6 / 1251.6 Weight 79.4 kg Intake: IV 1251.6 / 1251.6 1362.5 / 1362.5 1251.6 / 1251.6 NS Inj 1,000 ML @ 100 mls/hr IV 1000 / 1000 1000 / 1000 1000 / 1000 .CONT .Q10H [facility] Rx#:[id number] Maxipime Inj 2,000 MG In NS Inj 200 / 200 100 / 100 200 / 200 100 ML @ 200 mls/hr IV.SIG Q8H [facility] Rx#:[id number] Neupogen Inj 480 MCG In D5W Inj 51.6 / 51.6 51.6 / 51.6 50 ML @ 100 mls/hr IV.SIG DAILY@1400 [facility] Rx#:[id number] Vancomycin Inj 1,250 MG In NS 262.5 / 262.5 Inj 250 ML @ 250 mls/hr IV.SIG Q24H [facility] Rx#:[id number] Oral 850 / 850 600 / 600 Output: Urine 1999 / 1999 600 / 600 Other: Date of Last Bowel Movement 01/17/18 01/17/18 # Bowel Movements 1 Narrative: General patient in no acute distress, no cough HEENT extraocular movements are intact, clear oropharyngeal mucosa, no JVD Cardiovascular S1-S2 audible, RRR, no murmurs rubs or gallops Respiratory clear to auscultation bilaterally Abdomen soft, nontender, nondistended, normal bowel sounds Extremities no edema 2+ distal pulses in bilateral upper and lower extremities Neuro no obvious neurological deficits. Results - Labs CBC & Chem 7: 01/17/18 05:17 01/16/18 05:30 Laboratory Results - last 24 hr 01/17/18 05:17 WBC 2.3 L RBC 3.32 L Hgb 10.2 L Hct 30.9 L MCV 93.0 MCH 30.6 MCHC 32.9 RDW 15.9 Plt Count 120 L MPV 10.2 Prelim Diff (Auto) Slide review pending Neut % (Auto) 47.0 Lymph % (Auto) 36.3 [place] % (Auto) 14.4 H Eos % (Auto) 1.2 Baso % (Auto) 1.1 Neut # (Auto) 1.1 L Lymph # (Auto) 0.8 L [place] # (Auto) 0.3 Eos # (Auto) 0.0 Baso # (Auto) 0.0 WBC Differential . Diff Scan Auto diff confirmed Differential Comment . 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 He says his symptoms started approximately a week ago and were on and off. He says that his chemotherapy was stopped about a week and a half ago because he had decreased blood cell counts. He has been on treatment for leukemia for approximately 5 years. 1. Neutropenic fever 2. CML/pancytopenia Patient has not been afebrile for 48 hours Patient initially was tachycardic, with a absolute neutrophil count today of 1081. Chest x-ray, CT scan of the chest, urinalysis is negative for infection. Blood cultures are currently negative. We will continue the patient on IV antibiotics. All cultures will be follow-up including blood cultures and sputum culture. [facility] oncology is following the patient and recommends that the patient be monitored for 1 more day. If the patient remains afebrile he will likely be discharged tomorrow. 2. Acute kidney injury likely prerenal Serum creatinine has now normalized and is currently 1.0 from 1.52 days ago. Avoid nephrotoxic agents. 3. Hypertension The patient's blood pressure is currently under control. Currently he is not on his home medications for hypertension. We will continue to monitor his blood pressure and if needed his blood pressure medications will be started. Heparin for DVT prophylaxis.
[2018-01-18] MEDS: Vancomycin Inj 1,250 MG in Sodium Chlor 0.9% Inj 250 ML IV.SIG SCH (00:44)
[2018-01-18] MEDS ORDERED: Pharmacy Ordered Lab Info OTHER ONE (00:45)
[2018-01-18] MEDS: Sod Chloride 0.9% Inj 1,000 ML IV.CONT SCH (02:00)
[2018-01-18] MEDS: Levothyroxine 100 MCG Tablet PO SCH (05:59)
[2018-01-18] MEDS: Heparin - SQ 10,000 UNITS/ML Vial SQ SCH (05:59)
[2018-01-18 06:52] LABS: Hematocrit 30.7 % (39.0-51.0); Hemoglobin 10.5 gm/dL (13.0-17.0); Mean Corpuscular HGB Conc 34.2 % (32.0-36.0); Mean Corpuscular Hemoglobin 31.1 pg (27.0-34.0); Mean Corpuscular Volume 90.8 fL (80.0-100.0); Mean Platelet Volume 9.6 fL (7.0-11.0); Platelet Count 163 th/mm3 (150-450); Red Blood Count 3.38 mil/mm3 (4.50-5.90); Red Cell Distribution Width 15.8 % (11.6-17.2); White Blood Count 4.5 th/mm3 (4.0-11.0)
[2018-01-18 08:31] LABS: Dohle Bodies Present; Eosinophils 1 % (0-4); Lymphocytes 31 % (9-44); Metamyelocytes 3 % (0-1); Monocytes 7 % (0-8); Myelocytes 1 % (0-0); Platelet Estimate Normal (Normal); Toxic Granulation 1+
[2018-01-18] MEDS: Allopurinol 100 MG Tablet PO SCH (08:47)
[2018-01-18] MEDS: Sodium Chloride 0.9% 2 ML Flush BID IV.FLUSH SCH (08:47)
[2018-01-18] MEDS: Nystatin/Diphenhydramine/Lidocaine Mouthwash (Adult) 120 ML Botttle SWISH-SWAL SCH (08:51)
--- NOTE | 2018-01-18 10:29 | P.DS ---
Date of admission: 01/15/18 03:08 Primary care physician: UNKNOWN Brief History from admission: The patient is a 78-year-old male with past medical history of leukemia who is presenting to the hospital with chills and a cough. The patient says that about 1 week ago he developed chills alternating with episodes of heat and sweating. He says that this would occur on and off. He also had a cough with clear mucus production. He denies any shortness of breath or chest pain, although he does endorse some wheezing. He denies any chest pain upon deep breathing. He has had a decreased appetite over the past week. He denies any nausea, vomiting or diarrhea. He has not had any rashes. He has not checked his temperature at home. He says that his chemotherapy was stopped about a week and a half ago because he had decreased blood cell counts. He says he has been on treatment for leukemia for 5-6 years. 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 He says his oncologist is located in a different state. DS: Summary Hospital Course: This patient is a 78-year-old male with a diagnosis of hypertension, dyslipidemia, CML. The patient presented to our facility with complaints of fevers, chills, and a cough. The patient symptoms were going on for nearly 1 week. He denied having any shortness of breath, no chest pain. He had chemotherapy which was stopped about 2 weeks prior to admission due to decreased blood cell counts. He then came into the emergency department for evaluation and care. 1. Neutropenic fever 2. CML/pancytopenia The patient was admitted and sepsis protocol was initiated. Blood cultures were drawn and the patient was started on IV antibiotics. Chest imaging did not show any findings consistent with infection. Urinalysis was negative. Blood cultures have been negative since admission. Initially the patient was spiking fevers. He was continued on broad-spectrum IV antibiotics. Heme oncology was consulted to evaluate the patient. He was subsequently started on Neupogen and his blood counts were monitored closely daily. He has not been afebrile for 3 days except for one low-grade fever. His symptoms have improved. The patient feels well and is able to ambulate without any difficulties. All cultures have been negative. Sepsis has been ruled out. The patient's ANC has been over thousand the past 3 days. Heme oncology has cleared the patient for discharge. He will be discharged home today. He wants to follow-up outpatient with for CML who he will see in the next 1-2 weeks. After that the patient is likely going back to [place] and will follow up with his oncologist and primary care physician over there. 3. Acute kidney injury likely secondary to dehydration. On admission the patient elevated serum creatinine of 1.5. After the initiation of IV fluids and treatment his serum creatinine improved. His serum creatinine is now normal. 4. Hypertension/dyslipidemia The patient blood pressure is currently under control without any medications while in house. I recommend that he continues Norvasc. Lisinopril will be discontinued for now. He should follow-up with his primary care physician and if his blood pressure is elevated then lisinopril can be restarted if needed. Patient will be discharged home today. - Time Spent with Patient Total time spent providing and/or coordinating discharge services: Greater than 30 minutes - Quality: VTE Deep Vein Thrombosis/Pulmonary Embolism Present on Admission: No Exam Vital signs: Vital Signs 01/17/18 11:00 01/17/18 11:23 01/17/18 15:00 Temperature 97.8 F Pulse Rate 94 H 86 91 H Respiratory Rate 18 Blood Pressure 137/80 Pulse Oximetry 95 01/17/18 15:26 01/17/18 20:00 01/17/18 23:59 Temperature 98.7 F 100.4 F H 98.1 F Pulse Rate 90 74 Respiratory Rate 18 18 18 Blood Pressure 118/76 138/81 115/83 Pulse Oximetry 92 L 93 L 01/18/18 04:00 01/18/18 08:58 01/18/18 09:41 Temperature 97.9 F 98.7 F Pulse Rate 89 78 48 L Respiratory Rate 22 20 Blood Pressure 129/79 123/86 Pulse Oximetry 94 L 93 L Intake & Output 01/17/18 01/18/18 01/18/18 18:59 06:59 18:59 Intake Total 2211.6 / 2211.6 1842.5 / 1842.5 Output Total 725 / 725 1525 / 1525 850 / 850 Balance 1486.6 / 1486.6 317.5 / 317.5 -850 / -850 Weight 84.4 kg Intake: IV 1251.6 / 1251.6 1362.5 / 1362.5 NS Inj 1,000 ML @ 100 mls/hr IV 1000 / 1000 1000 / 1000 .CONT .Q10H [facility] Rx#:[id number] Maxipime Inj 2,000 MG In NS Inj 200 / 200 100 / 100 100 ML @ 200 mls/hr IV.SIG Q8H [facility] Rx#:[id number] Neupogen Inj 480 MCG In D5W Inj 51.6 / 51.6 50 ML @ 100 mls/hr IV.SIG DAILY@1400 [facility] Rx#:[id number] Vancomycin Inj 1,250 MG In NS 262.5 / 262.5 Inj 250 ML @ 250 mls/hr IV.SIG Q24H [facility] Rx#:[id number] Oral 960 / 960 480 / 480 Output: Urine 725 / 725 1525 / 1525 850 / 850 Other: Date of Last Bowel Movement 01/17/18 01/17/18 # Bowel Movements 0 Narrative: General patient in no acute distress HEENT extraocular movements are intact, clear oropharyngeal mucosa, no JVD Cardiovascular S1-S2 audible, RRR, no murmurs rubs or gallops Respiratory clear to auscultation bilaterally Abdomen soft, nontender, nondistended, normal bowel sounds Extremities no edema 2+ distal pulses in bilateral upper and lower extremities Neuro cranial nerves II through XII intact Results Procedures completed during hospitalization: None Labs on day of discharge: Labs from last 24 hours 01/18/18 01/18/18 01/18/18 06:00 06:00 00:45 WBC 4.5 RBC 3.38 L Hgb 10.5 L Hct 30.7 L MCV 90.8 MCH 31.1 MCHC 34.2 RDW 15.8 Plt Count 163 D MPV 9.6 Prelim Diff (Auto) Manual diff required WBC Differential Manual diff final Seg Neuts % (Manual) 35 Band Neuts % (Manual) 19 H Lymphocytes % (Manual) 31 Monocytes % (Manual) 7 Eosinophils % (Manual) 1 Basophils % (Manual) 3 H Metamyelocytes % (Man) 3 H Myelocytes % (Man) 1 H Abs Neuts (Manual) 2.6 Differential Comment . Toxic Granulation 1+ H Dohle Bodies Present H Platelet Estimate Normal Platelet Morphology Enlarged H Creatinine 1.07 Estimated GFR 67 L Vancomycin Trough 8.9 Preliminary micro results at discharge 01/14/18 19:38 Aerobic Blood Culture - Preliminary Blood - Peripheral No growth in 3 days Anaerobic Blood Culture - Preliminary No growth in 3 days 01/14/18 19:43 Aerobic Blood Culture - Preliminary Blood - Peripheral No growth in 3 days Anaerobic Blood Culture - Preliminary No growth in 3 days - Impressions ITS Impressions Chest X-Ray 01/14/18 19:08 CONCLUSION: 1. Minimal patchy airspace disease at the lung bases, presumably atelectasis. Chest CT 01/14/18 21:31 CONCLUSION: 1. No acute findings. Minimal basilar atelectasis. Severe coronary artery calcifications especially LAD. Pulmonary Perfusion Imaging 01/14/18 22:08 CONCLUSION: Normal study, low probability for pulmonary embolus. Perfusion is homogeneous. Discharge Plan - Discharge Disposition Patient Disposition: 01 Discharge Home - Discharge Condition Condition: Stable - Discharge Order Discharge Orders: Discharge Order (Routine); Ordered 01/18/18 Ordered By: Brian Shannon - Physicians Team Primary Care Provider: UNKNOWN, Attending Provider: Brian Shannon Other Providers: Minal Rosas MD
--- NOTE | 2018-01-18 17:23 | P.PNONC ---
Subjective Interval history: Late entry Patient is feeling better Does not have any more fever Wants to go home Objective Vital Signs/Intake & Output: Vital Signs 01/17/18 20:00 01/17/18 23:59 01/18/18 04:00 Temperature 100.4 F H 98.1 F 97.9 F Pulse Rate 74 89 Respiratory Rate 18 18 22 Blood Pressure 138/81 115/83 129/79 Pulse Oximetry 93 L 94 L 01/18/18 08:58 01/18/18 09:41 Temperature 98.7 F Pulse Rate 78 48 L Respiratory Rate 20 Blood Pressure 123/86 Pulse Oximetry 93 L Intake & Output 01/17/18 01/18/18 01/18/18 18:59 06:59 18:59 Intake Total 2211.6 / 2211.6 1842.5 / 1842.5 Output Total 725 / 725 1525 / 1525 850 / 850 Balance 1486.6 / 1486.6 317.5 / 317.5 -850 / -850 Weight 84.4 kg Intake: IV 1251.6 / 1251.6 1362.5 / 1362.5 NS Inj 1,000 ML @ 100 mls/hr IV 1000 / 1000 1000 / 1000 .CONT .Q10H [facility] Rx#:[id number] Maxipime Inj 2,000 MG In NS Inj 200 / 200 100 / 100 100 ML @ 200 mls/hr IV.SIG Q8H [facility] Rx#:[id number] Neupogen Inj 480 MCG In D5W Inj 51.6 / 51.6 50 ML @ 100 mls/hr IV.SIG DAILY@1400 [facility] Rx#:[id number] Vancomycin Inj 1,250 MG In NS 262.5 / 262.5 Inj 250 ML @ 250 mls/hr IV.SIG Q24H [facility] Rx#:[id number] Oral 960 / 960 480 / 480 Output: Urine 725 / 725 1525 / 1525 850 / 850 Other: Date of Last Bowel Movement 01/17/18 01/17/18 # Bowel Movements 0 Result Diagrams: 01/18/18 06:00 01/18/18 06:00 Laboratory Results: Laboratory Results - last 24 hr 01/18/18 01/18/18 01/18/18 00:45 06:00 06:00 WBC 4.5 RBC 3.38 L Hgb 10.5 L Hct 30.7 L MCV 90.8 MCH 31.1 MCHC 34.2 RDW 15.8 Plt Count 163 D MPV 9.6 Prelim Diff (Auto) Manual diff required WBC Differential Manual diff final Seg Neuts % (Manual) 35 Band Neuts % (Manual) 19 H Lymphocytes % (Manual) 31 Monocytes % (Manual) 7 Eosinophils % (Manual) 1 Basophils % (Manual) 3 H Metamyelocytes % (Man) 3 H Myelocytes % (Man) 1 H Abs Neuts (Manual) 2.6 Differential Comment . Toxic Granulation 1+ H Dohle Bodies Present H Platelet Estimate Normal Platelet Morphology Enlarged H Creatinine 1.07 Estimated GFR 67 L Vancomycin Trough 8.9 Culture Results: Microbiology 01/14/18 19:38 Aerobic Blood Culture - Preliminary Blood - Peripheral No growth in 4 days Anaerobic Blood Culture - Preliminary No growth in 4 days 01/14/18 19:43 Aerobic Blood Culture - Preliminary Blood - Peripheral No growth in 4 days Anaerobic Blood Culture - Preliminary No growth in 4 days Objective Remarks: . GENERAL: Well-nourished, well-developed patient. SKIN: Warm and dry. HEAD: Normocephalic. EYES: No scleral icterus. No injection or drainage. MOUTH: ulcer with white mucosal bed left lip line. NECK: Supple, trachea midline. No JVD or lymphadenopathy. LYMPHATIC: No adenopathy. CARDIOVASCULAR: +s1/s2 without murmurs. RESPIRATORY: Breath sounds equal bilaterally. Nonlabored at rest. GASTROINTESTINAL: Abdomen soft, non-tender, nondistended. EXTREMITIES: No cyanosis, or edema. MUSCULOSKELETAL: Adequate muscle tone. NEUROLOGICAL: No obvious focal deficit. Awake, alert, and oriented x3. PSYCHIATRIC: Appropriate mood and affect; insight and judgment normal. Assessment/Plan - Plan Mr. Zhao is a pleasant 78-year-old gentleman who is from [place]. 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 He is currently hospitalized for neutropenic fevers. Recommendations: 1. Chronic myeloid leukemia, Gleevec held 2 weeks ago for neutropenia. 2. Neutropenic fever, last fever was 01/15 at 1354, 101.3 F, afebrile times 2 days. Blood cultures negative times 2 days. ANC 1100. 3. Monitor for fever, will await third day of negative blood cultures and being afebrile and the patient will likely be discharged home. 4. He will follow-up locally while in [place], and he will follow-up with his oncologist in [place]. 01/18/2018 Patient remains afebrile Blood cultures are negative times 72 hours Leukopenia and neutropenia both have now resolved Okay to discharge from my standpoint Discussed with patient's RN and admitting physician
[2018-01-19] MEDS ORDERED: Vancomycin Inj 1,750 MG in Sodium Chlor 0.9% Inj 500 ML IV.SIG SCH (01:00)
[2018-01-22] MEDS ORDERED: Pharmacy Ordered Lab Info OTHER ONE (00:45)
== END 2018-01-18 11:47 | disposition home or self-care (01) ==
LOC: NEPC 17:39 → NEDA 01-15 03:08 → NEPGCP 01-15 04:29 → HCIN 01-15 13:22
PROVIDERS: ADMIT Hospitalist; ATTEND Hospitalist